=== PATIENT | female | born 1940 | race Caucasian/White ===

== ENCOUNTER 2018-04-24 08:42 | Outpatient (REF) | payer MEDICARE, SELFPAY ==
[2018-04-24 21:26] LABS: ALT 25 U/L (12-78); AST 17 U/L (15-37); Albumin 3.6 g/dL (3.4-5.0); Alkaline Phosphatase 58 U/L (46-116); Anion Gap 9.2 mmol/L (3-11); BUN 14 mg/dL (7-18); Bilirubin, Total 0.5 mg/dL (0.2-1.0); CO2 26.8 mmol/L (21.0-32.0); CREATININE 0.88 mg/dL (0.55-1.02); Calcium 8.9 mg/dL (8.5-10.1); Chloride 107 mmol/L (98-107); Cholesterol 188 mg/dL (50-200); Glucose 110 mg/dL (70-100); HDL Cholesterol 56 mg/dL (40-60); LDL CHOLESTEROL 114 mg/dL (<100); Potassium 4.7 mmol/L (3.5-5.1); Sodium 143 mmol/L (136-145); Total Protein 6.3 g/dL (6.4-8.2); Triglyceride 99 mg/dL (30-150)
== END 2018-04-24 09:02 ==
LOC: NCHCN 08:42
PROVIDERS: PCP Physician Assistant Medical; Visit Provider Nurse Practitioner Family
DX: E78.5 Hyperlipidemia, unspecified (principal); E11.9 Type 2 diabetes mellitus without complications
CPT/HCPCS: 80053; 80061; 83721

== ENCOUNTER 2019-01-11 17:45 | Emergency (ER) | payer MEDICARE, SELFPAY ==
[2019-01-11 18:02] VITALS: BP 153/78; PULSE 91; RESP 16; TEMP 36.6; O2SAT 96
--- NOTE | 2019-01-11 19:45 | DI.COMBO_ITS ---
SYMPTOM/DIAGNOSIS: FELL, PAIN RIGHT WRIST: There is a fracture extending transversely through the distal radial metaphysis. There is some impaction as well as posterior angulation. The fracture extends to the articular surface. There is a nondisplaced fracture of the ulnar styloid. Degenerative changes are seen in the carpal region. IMPRESSION: Distal radial and ulnar styloid fractures. RIGHT HAND: Fracture is seen of the distal radius and ulnar styloid are again noted. Degenerative changes are noted at the carpal joint and the first carpal metacarpal joint as well as at the distal interphalangeal joints. No additional fractures are seen. IMPRESSION: Distal radial and ulnar styloid fractures. No additional fractures are seen in the hand. LEFT WRIST: There is a comminuted intra-articular fracture of the distal radius. There is severe impaction as well as significant displacement of the fracture fragments. There is also a displaced ulnar styloid fracture. The metacarpal as well as carpal bones appear intact. Degenerative changes are seen at the first carpal metacarpal joint. IMPRESSION: Displaced, impacted fracture of the distal radius and ulnar styloid fracture. LEFT HAND: Comminuted intra-articular fracture of the distal radius and ulnar styloid fracture are again noted. No additional fractures are seen in the hand. There is severe degenerative changes of the interphalangeal joints of the fingers as well as at the first carpal metacarpal joint. IMPRESSION: Distal radial and ulnar styloid fractures. No additional fractures are seen in the hand. LEFT FOREARM: There is a comminuted intra-articular fracture of the distal radius with impaction. An ulnar styloid fracture is also present. No fractures are seen more proximally in the radius or ulna. RIGHT FOREARM: There are fractures of the distal radius and ulnar styloid. No additional fractures are seen more proximally. The elbow is unremarkable as visualized. IMPRESSION: Distal radial and ulnar styloid fractures. NONCONTRAST HEAD CT: No intracranial hemorrhage, mass or acute infarct is seen. There is mild atrophy and mild white matter changes of small vessel disease. The orbits and mastoid air cells are unremarkable. IMPRESSION: No acute abnormality. CERVICAL SPINE CT: No fracture or subluxation is seen. Degenerative changes are seen throughout. There is no prevertebral soft tissue swelling. IMPRESSION: No acute abnormality. FACIAL CT: The orbits appear intact. There is minimal mucosal thickening of the right maxillary sinus. The remaining sinuses appear clear. No facial fractures are seen. The temporomandibular joints appear intact. IMPRESSION: Negative facial CT.
--- NOTE | 2019-01-11 20:10 | DI.VRAD_ITS ---
EXAM: XR Right Wrist EXAM DATE/TIME: 01/11/2019 6:57 PM CLINICAL HISTORY: 78 years old, female; Injury or trauma; Initial encounter; Blunt trauma (contusions or hematomas; Wrist; Right; Injury date: 01/11/19; Injury details: Fall on outstretched hands TECHNIQUE: Imaging protocol: XR Right wrist. Views: 3 or more views. COMPARISON: No relevant prior studies available. FINDINGS: Bones/joints: Distal radial metaphyseal fracture with a predominantly transverse fracture plane, demonstrating [id number] impaction dorsal medially. There is evidence of nondisplaced fracture in the radial styloid as well with nondisplaced articular extension at the radio scaphoid joint. Nondisplaced ulnar styloid fracture also noted. No carpal bone fractures are identified. Distal radioulnar alignment is normal. No blastic or lytic lesions. No periostitis or osteolysis. There is moderate degenerative joint space narrowing and marginal spurring at the first CMC joint and STT joint. Osteopenia. Soft tissues: No gross erosive changes. Moderate soft tissue swelling around the wrist. Other findings: Carpal relationships are normal. IMPRESSION: 1. Transverse distal radial metaphyseal fracture with mild dorsal medial impaction and mild apex anterior angulation of about 10-15 degrees. 2. There is an additional component of nondisplaced fracture in the radial styloid with nondisplaced extension to the articular surface at the lateral margin of the radio scaphoid joint. 3. Nondisplaced ulnar styloid avulsion. 4. Osteopenia. 5. There is moderate degenerative joint space narrowing and marginal spurring at the first CMC joint and STT joint. Dictated and Authenticated by: Franco Flores MD. Ordering:MYLES Ceron MD
--- NOTE | 2019-01-11 20:11 | DI.VRAD_ITS ---
EXAM: XR Right Hand EXAM DATE/TIME: 01/11/2019 6:57 PM CLINICAL HISTORY: 78 years old, female; Injury or trauma; Initial encounter; Blunt trauma (contusions or hematomas; Right; Injury date: 01/11/19; Injury details: Fall on outstretched hands TECHNIQUE: Imaging protocol: XR Right hand. Views: 3 or more views. COMPARISON: No relevant prior studies available. FINDINGS: Bones/joints: No fractures are identified in the right hand. Moderate erosive osteoarthritis identified in the DIP joints of the right second and third fingers and to a lesser degree the fifth finger DIP joint. Moderate degenerative arthropathy in the STT joint and first CMC joint again noted. Mildly impacted transverse distal right radial metaphyseal fracture again noted. Nondisplaced radial styloid fracture component again noted. Nondisplaced ulnar styloid fracture again noted. Distal radioulnar alignment is normal. No blastic or lytic lesions. No periostitis or osteolysis. Soft tissues: No gross erosive changes. Moderate soft tissue swelling around the wrist. Other findings: Carpal relationships are normal. IMPRESSION: 1. No fractures are identified in the right hand. 2. Wrist fractures involving the distal right radius and ulna again noted, please see wrist x-ray report for further details. 3. 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 Moderate degenerative changes in the first CMC joint and STT joint. Dictated and Authenticated by: Franco Flores MD. Ordering:MYLES Ceron MD
--- NOTE | 2019-01-11 20:22 | DI.VRAD_ITS ---
EXAM: CT Head Without Contrast EXAM DATE/TIME: 01/11/2019 6:57 PM CLINICAL HISTORY: 78 years old, female; Injury or trauma; Initial encounter; Blunt trauma (contusions or hematomas); Consciousness not specified; Injury date: 01/11/19; Injury details: Fall head first TECHNIQUE: Imaging protocol: Computed tomography images of the head without contrast. Coronal and sagittal reformatted images were created and reviewed. Radiation optimization: All CT scans at this facility use at least one of these dose optimization techniques: automated exposure control; mA and/or kV adjustment per patient size (includes targeted exams where dose is matched to clinical indication); or iterative reconstruction. COMPARISON: No relevant prior studies available. FINDINGS: Brain: Moderate generalized atrophy with mild periventricular white matter ischemic changes consistent with the patient's advanced age. No extra-axial fluid collections. No evidence of acute intracranial hemorrhage. Gomes-white differentiation is well maintained. No evidence of acute or subacute intracranial ischemia/infarct. No intracranial mass lesions. Midline shift: No midline shift or herniation. Ventricles: Ventricles normal. Bones/joints: The calvarium and visualized facial bones are intact. Sinuses: Visualized paranasal sinuses are clear. Mastoid air cells: Visualized mastoid air cells are clear. Orbits: Orbital contents demonstrate no evidence of acute abnormality. Soft tissues: The scalp and visualized soft tissues are unremarkable. Vasculature: No asymmetric vascular hyperdensities are identified. Moderate atherosclerotic calcific plaque is identified in the visualized distal ICA segments . Other findings: The IACs are grossly normal. The sella is grossly normal. IMPRESSION: No acute intracranial process. EXAM: CT Maxillofacial Without Contrast EXAM DATE/TIME: 01/11/2019 6:57 PM CLINICAL HISTORY: 78 years old, female; Injury or trauma; Initial encounter; Blunt trauma (contusions or hematomas); Consciousness not specified; Injury date: 01/11/19; Injury details: Fall head first TECHNIQUE: Imaging protocol: Computed tomography images of the face without contrast. Coronal and sagittal reformatted images were created and reviewed. Radiation optimization: All CT scans at this facility use at least one of these dose optimization techniques: automated exposure control; mA and/or kV adjustment per patient size (includes targeted exams where dose is matched to clinical indication); or iterative reconstruction. COMPARISON: No relevant prior studies available. FINDINGS: Orbits: Orbital contents are normal. Sinuses: Mucosal thickening in the right maxillary sinus suggesting mild chronic sinus inflammatory disease. No fluid levels. The other paranasal sinuses are clear. Bones/joints: No facial fractures are identified. TMJs are well aligned. Brain: Visualized intracranial contents are unremarkable. The infratemporal fossae and solar manager spaces are unremarkable. Nasopharynx: The nasopharynx is unremarkable. Oropharynx: The parapharyngeal spaces are unremarkable. The oropharynx is unremarkable. Lymph nodes: No adenopathy. Vasculature: Mild atherosclerotic calcification in the carotid bulbs. Submandibular/Parotid glands: The parotid and submandibular glands are unremarkable. Soft tissues: No significant facial soft tissue swelling is appreciated. No hematoma or foreign body. Other findings: The hypopharynx is unremarkable. Visualized larynx is unremarkable. Craniocervical alignment is normal. IMPRESSION: No facial fractures are identified. EXAM: CT Cervical Spine Without Contrast EXAM DATE/TIME: 01/11/2019 6:57 PM CLINICAL HISTORY: 78 years old, female; Injury or trauma; Initial encounter; Blunt trauma (contusions or hematomas); Consciousness not specified; Injury date: 01/11/19; Injury details: Fall head first TECHNIQUE: Imaging protocol: Computed tomography images of the cervical spine without contrast. Coronal and sagittal reformatted images were created and reviewed. Radiation optimization: All CT scans at this facility use at least one of these dose optimization techniques: automated exposure control; mA and/or kV adjustment per patient size (includes targeted exams where dose is matched to clinical indication); or iterative reconstruction. COMPARISON: No relevant prior studies available. FINDINGS: Vertebrae: Diffuse osteopenia. Craniocervical alignment is normal. The odontoid is intact. Slight 1 mm degenerative anterolisthesis C4-C5 and C5-C6. No compressive soft disc protrusion or extrusion is evident by CT. A shallow posterior mixed spondylotic protrusion at C5-C6 measures 2 mm AP, and there is a 2 mm posterior spondylotic ridge at C6-C7. Discs/Spinal canal/Neural foramina: Mild degenerative sclerosis and spurring at the atlantodens interval. No jumped or perched facets. Moderate degenerative joint space narrowing with mild endplate sclerosis and marginal spurring and C5-C6, C6-C7, and C7-T1. No evidence of significant central canal stenosis. No evidence of significant neuroforaminal stenosis. Other bones/joints: No fractures. No blastic or lytic lesions. Soft tissues: See Vasculature Finding. Thyroid: 1.5 cm low-density nodule in the left thyroid lobe. Followup thyroid ultrasound characterization is recommended. Lungs: Visualized pulmonary apices are clear. Vasculature: Mild atherosclerotic calcification in the carotid bulbs. Paraspinous soft tissues are otherwise unremarkable. IMPRESSION: 1. No evidence of fracture or acute traumatic subluxation. 2. Osteopenia and cervical degenerative changes as described. 3. 1.5 cm low-density nodule in the left thyroid lobe. Followup thyroid ultrasound characterization is recommended. Dictated and Authenticated by: Franco Flores MD. Ordering:MYLES Ceron MD
--- NOTE | 2019-01-11 20:54 | DI.VRAD_ITS ---
EXAM: XR Left Wrist EXAM DATE/TIME: 01/11/2019 6:57 PM CLINICAL HISTORY: 78 years old, female; Injury or trauma; Fall; Initial encounter; Blunt trauma (contusions or hematomas; Wrist; Left; Injury date: 01/11/19; Additional info: Fall on outstretched hands TECHNIQUE: Imaging protocol: XR Left wrist. Views: 3 or more views. COMPARISON: No relevant prior studies available. FINDINGS: Bones/joints: Comminuted fracture of the distal left radial metaphysis without 8 mm impaction. There is comminuted extension to the articular surface at the radiocapitellar and radiolunate joints. Mildly displaced ulnar styloid avulsion fracture. Moderate degenerative arthropathy of the first CMC joint and STT joint. No carpal bone fractures are identified. Soft tissues: Moderate soft tissue swelling around the left wrist. IMPRESSION: 1. Comminuted impacted fracture of the distal left radial metaphysis with comminuted intra-articular extension. 2. Mildly displaced ulnar styloid fracture. 3. Moderate degenerative arthropathy of the first CMC joint and STT joint. Dictated and Authenticated by: Franco Flores MD. Ordering:MYLES Ceron MD
--- NOTE | 2019-01-11 20:55 | DI.VRAD_ITS ---
EXAM: XR Left Forearm EXAM DATE/TIME: 01/11/2019 6:57 PM CLINICAL HISTORY: 78 years old, female; Injury or trauma; Fall; Initial encounter; Blunt trauma (contusions or hematomas; Arm, lower; Left; Injury date: 01/11/19; Additional info: Fall on outstretched hands TECHNIQUE: Imaging protocol: XR Left forearm. Views: 2 views. COMPARISON: No relevant prior studies available. FINDINGS: Bones/joints: The comminuted impacted intra-articular fracture of the distal left radial metaphysis is again noted. A mildly displaced ulnar styloid fracture is again noted. No fractures are identified in the mid and proximal radius and ulna. Normal alignment is maintained at the elbow without gross elbow joint effusion. Proximal radial ulnar alignment is normal. Soft tissues: Moderate soft tissue swelling in the mid and distal forearm. IMPRESSION: 1. No fractures are identified in the mid and proximal radius and ulna. 2. Radioulnar alignment is grossly well-maintained. 3. Moderate soft tissue swelling. Dictated and Authenticated by: Franco Flores MD. Ordering:MYLES Ceron MD
--- NOTE | 2019-01-11 20:56 | DI.VRAD_ITS ---
EXAM: XR Right Forearm EXAM DATE/TIME: 01/11/2019 6:57 PM CLINICAL HISTORY: 78 years old, female; Injury or trauma; Fall; Initial encounter; Blunt trauma (contusions or hematomas; Arm, lower; Right; Injury date: 01/11/19; Additional info: Fall on outstretched hands TECHNIQUE: Imaging protocol: XR Right forearm. Views: 2 views. COMPARISON: No relevant prior studies available. FINDINGS: Bones/joints: The previously identified mildly impacted fracture of the distal right radial metaphysis with nondisplaced radial styloid fracture and nondisplaced ulnar styloid fracture are again noted. No fractures are identified in the mid and proximal right radius and ulna. Proximal radial ulnar alignment at distal radioulnar alignment is grossly well maintained. No gross elbow joint effusion. Soft tissues: Moderate soft tissue swelling in the mid and distal right forearm. IMPRESSION: 1. No fractures are identified in the mid and proximal right forearm. 2. Distal radial and ulnar fractures are again noted, please see wrist x-ray report for further details. 3. Soft tissue swelling. Dictated and Authenticated by: Franco Flores MD. Ordering:MYLES Ceron MD
--- NOTE | 2019-01-11 20:58 | DI.VRAD_ITS ---
EXAM: XR Left Hand EXAM DATE/TIME: 01/11/2019 6:57 PM CLINICAL HISTORY: 78 years old, female; Injury or trauma; Fall; Initial encounter; Blunt trauma (contusions or hematomas; Hand; Left; Injury date: 01/11/19; Additional info: Fall on outstretched hands TECHNIQUE: Imaging protocol: XR Left hand. Views: 3 or more views. COMPARISON: No relevant prior studies available. FINDINGS: Bones/joints: Comminuted impacted fracture of the distal left radial metaphysis with displaced intra-articular extension is again noted. Mildly displaced ulnar styloid fracture again noted. Carpal relationships are normal. No carpal bone fractures are identified. The metacarpals are intact. The phalanges are intact. Moderate erosive osteoarthritis in the DIP joints of the second through fifth fingers. Moderate degenerative arthropathy of the first CMC joint and STT joint. Soft tissues: Soft tissue swelling around the left wrist. IMPRESSION: 1. No fracture or dislocation in the left hand itself. 2. Fractures of the distal left radius and ulna again noted, please see wrist x-ray report. 3. Osteopenia and evidence of erosive osteoarthritis in the DIP joints. Moderate degenerative arthropathy in the first CMC joint and STT joint. Dictated and Authenticated by: Franco Flores MD. Ordering:MYLES Ceron MD
--- NOTE | 2019-01-11 21:03 | ED.GENADUL_ITS ---
Discharge Plan Disposition Patient Disposition: HOME Condition: Stable Discharge Details Chief Complaint: Trauma Clinical Impression: Closed fracture distal radius and ulna, Contusion of face Primary Care Provider: Julisa Gavin ED Provider: Osmany Márquez Home Meds and New Rx's Prescriptions: Continued epinephrine 0.3 MG/SYR auto-injector 0.3 mg IJ PRN PRNRF: 0 acetaminophen [Tylenol Extra Strength] 500 MG tablet 1,000 mg PO HS PRN PRNRF: 0 alendronate 35 MG tablet 35 mg PO Q7D RF: 0 simvastatin 20 MG tablet 20 mg PO DAILY RF: 0 metformin 1,000 MG tablet 1,000 mg PO DAILY RF: 0 prednisone 50 MG tablet 50 mg PO DAILY 5 Days RF: 0 Discharge Instructions Instructions: Wrist Fracture in Adults (ED) Additional Instructions: You may continue to use [id number] pain medication as needed. Return immediately to the emergency department for any severe worsening of pain, numbness or tingling to your fingers or hands, or excessive swelling. Otherwise follow-up with orthopedist tomorrow for arrangement of follow-up appointment Referrals: Josiah Hector MD [ [facility] STAFF PHYSICIAN] - (Call the office in the morning for arrangement of follow-up appointment) Discharge Data Discharge Date/Time-TO BE ENTERED AT DEPARTURE: 01/11/19 21:55 Medical Decision Making Patient presenting to the emergency department with her daughter for chief complaint of fall and wrist injury. Patient states 2 days ago she was attempting to walk her cat and tripped on the leash and fell. When she caught herself she injured her wrists along with hitting her head slightly. Patient denies any loss of consciousness, headache, nausea vomiting, chest pain syncope or difficulty breathing. Physical exam shows significant ecchymosis to bilateral wrist hands and forearms along with ecchymosis surrounding the left orbit. Patient has no orbital tenderness, significant decreased range of motion to bilateral wrist and hands, radial pulses and cap refill is intact and appropriate, sensation is intact, patient states moderate pain to left wrist with movement and palpation to the distal radius and ulna but states only mild pain to the right wrist. Given significant trauma plan to do radiological imaging of bilateral hands, wrists, and forearms. Given patient's age and orbital ecchymosis plan to rule out acute intracranial abnormality, facial bone fracture, or cervical fracture. Patient denies any need for pain medication Review of radiological imaging shows bilateral distal radius fractures and ulnar styloid fractures. No ulnar dislocation is noted. Please see below note of full radiologist interpretation. Did consult with Dr. Hector due to bilateral wrist fractures with one having intra-articular involvement. He recommended splinting. Patient placed in sugar tong splint bilateral with Ortho-Glass and Mohsen bandage. Daughter is able to help patient at home and patient placed upon follow-up list. Return precautions discussed. After discussion of diagnosis and plan of care patient has no further needs, questions, or concerns and states clear understanding to return to the emergency department for any worsening symptoms. IMPRESSION: 1. No fracture or dislocation in the left hand itself. 2. Fractures of the distal left radius and ulna again noted, please see wrist x-ray report. 3. Osteopenia and evidence of erosive osteoarthritis in the DIP joints. Moderate degenerative arthropathy in the first CMC joint and STT joint. MPRESSION: 1. No fractures are identified in the mid and proximal right forearm. 2. Distal radial and ulnar fractures are again noted, please see wrist x-ray report for further details. 3. Soft tissue swelling. IMPRESSION: 1. No fractures are identified in the mid and proximal radius and ulna. 2. Radioulnar alignment is grossly well-maintained. 3. Moderate soft tissue swelling. IMPRESSION: 1. Comminuted impacted fracture of the distal left radial metaphysis with comminuted intra-articular extension. 2. Mildly displaced ulnar styloid fracture. 3. Moderate degenerative arthropathy of the first CMC joint and STT joint. IMPRESSION: No acute intracranial process. IMPRESSION: No facial fractures are identified. IMPRESSION: 1. No evidence of fracture or acute traumatic subluxation. 2. Osteopenia and cervical degenerative changes as described. 3. 1.5 cm low-density nodule in the left thyroid lobe. Followup thyroid ultrasound characterization is recommended. MPRESSION: 1. No fractures are identified in the right hand. 2. Wrist fractures involving the distal right radius and ulna again noted, please see wrist x-ray report for further details. 3. 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 Moderate degenerative changes in the first CMC joint and STT joint. MPRESSION: 1. Transverse distal radial metaphyseal fracture with mild dorsal medial impaction and mild apex anterior angulation of about 10-15 degrees. 2. There is an additional component of nondisplaced fracture in the radial styloid with nondisplaced extension to the articular surface at the lateral margin of the radio scaphoid joint. 3. Nondisplaced ulnar styloid avulsion. 4. Osteopenia. 5. There is moderate degenerative joint space narrowing and marginal spurring at the first CMC joint and STT joint. HPI General Mode of arrival: ambulatory . Date/Time Provider Initiated Documentation: 01/11/19 18:19 . Limitations to Documentation: no limitations . Information obtained by: patient and RN notes reviewed . History of Present Illness 78 year old F presents to the emergency department with the chief complaint of Fall, wrist injury, described as moderate, with intensity rated at 3. Quality is described as aching, and is localized to the upper extremity (Bilateral). Patient started experiencing this day(s) (2) and it has been constant. Patient notes no other symptoms.. Patient did receive the following treatments prior to arrival, none Related Data Home Medications Medication Instructions Recorded Confirmed acetaminophen [Tylenol Extra 1,000 mg PO HS PRN PRN 01/20/16 01/13/19 Strength] alendronate 35 mg PO Q7D 01/20/16 01/13/19 epinephrine 0.3 mg IJ PRN PRN 01/20/16 01/13/19 metformin 1,000 mg PO DAILY 01/20/16 01/13/19 prednisone 50 mg PO DAILY 5 Days tab 01/20/16 01/13/19 simvastatin 20 mg PO DAILY 01/20/16 01/13/19 Previous Rx's Medication Instructions Recorded prednisone 50 mg PO DAILY 5 Days tab 01/20/16 Allergies Allergy/AdvReac Type Severity Reaction Status Date / Time venom-honey bee Allergy Severe Anaphylaxsi Unverified 01/13/19 09:11 [bee venom (honey bee)] s General Stated Complaint: Trauma RONAK: 3 Review of Systems Constitutional Denies frequent falls Cardiovascular Denies chest pain, Denies rapid heart rate, Denies palpitations and Denies dyspnea Respiratory Denies dyspnea Gastrointestinal Denies vomiting Musculoskeletal Reports as per HPI, Reports joint swelling, Reports limited range of motion, Denies numbness and Denies tingling Neurologic Denies frequent falls, Denies numbness and Denies tingling Endocrine Denies palpitations PFSH Social History (Reviewed 01/11/19 @ 21:05 by TEODORA Watson Smoking/Tobacco Use Status: Former Tobacco Use Alcohol Intake: never Drug use: Never Substance use type: does not use Do you feel safe at home: Yes Exam HENNE Head: normal to inspection, no palpable skull fracture, no Du's sign, no hematomas, no palpable skull fracture, no raccoon eyes, no scalp tenderness, no temporal artery tenderness and periorbital ecchymosis (Left eye) Ears: hearing grossly normal bilaterally, external ears normal and TM's normal bilaterally General nose exam: external nose normal Neck Neck: normal visual inspection, full ROM, trachea midline and supple Resp Effort & Inspection: normal respiratory effort and able to speak in complete sentences Auscultation: clear to auscultation bilaterally Cardio Rate: regular rate Rhythm: regular rhythm Heart Sounds: S1 normal and S2 normal Back/Spine/Pelvis Cervical Spine: cervical ROM normal, No cervical spinal tenderness and No step off deformity Extrem Right upper extremity: elbow/forearm Details: normal to inspection and normal ROM; no tenderness, no abrasions, no lacerations and no ecchymosis, wrist D etails: tenderness Location: of the distal radius and of the distal ulna, swelling Location: of the dorsal wrist, abnormal ROM Details: pain with active ROM during (pronation) and ecchymosis; no abrasions and hand Details: normal capillary refill, neuromotor exam normal, neurosensory exam normal, tendon exam normal, normal ROM of fingers and ecchymosis Location: of the dorsal hand; no tenderness Left upper extremity: elbow/forearm Details: normal to inspection and normal ROM; no swelling, wrist Details: swelling (difuse), abnormal ROM Details: pain with active ROM, ecchymosis, deformity Details: dinner fork, normal vascular exam and radial pulse present; no abrasions, no lacerations and no crepitus and hand Details: normal capillary refill, neuromotor exam normal, neurosensory exam normal, tendon exam normal, normal ROM of fingers and ecchymosis; no tenderness and no crepitus Course Vital Signs Temperature 36.6 C 01/11/19 18:02 Pulse 91 H 01/11/19 18:02 Respiratory Rate 16 01/11/19 18: Blood Pressure 153/78 H 01/11/19 18:02 Pulse Oximetry 96 01/11/19 18:02 Temperature 36.6 C 01/11/19 18:02 Temperature Source Skin 01/11/19 18:02 Pulse 91 H 01/11/19 18:02 Respiratory Rate 16 01/11/19 18:02 Respiratory Effort Non-Labored 01/11/19 19:48 Blood Pressure 153/78 H 01/11/19 18:02 Blood Pressure Position Sitting 01/11/19 18:02 Pulse Oximetry 96 01/11/19 18:02 Oxygen Delivery Method Room Air 01/11/19 18:02 Oxygen Flow Rate 0 01/11/19 18:02
== END 2019-01-11 21:55 | disposition home or self-care (01) ==
PROVIDERS: Emergency Provider Nurse Practitioner Family; PCP Physician Assistant Medical
DX: S52.511A Displaced fracture of right radial styloid process, initial encounter for closed fracture (principal); S52.611A Displaced fracture of right ulna styloid process, initial encounter for closed fracture; S52.572A Other intraarticular fracture of lower end of left radius, initial encounter for closed fracture; S52.512A Displaced fracture of left radial styloid process, initial encounter for closed fracture; S00.83XA Contusion of other part of head, initial encounter; W01.0XXA Fall on same level from slipping, tripping and stumbling without subsequent striking against object, initial encounter
CPT/HCPCS: 99284; 70450; 70486; 72125; 73090; 73110; 73130

== ENCOUNTER 2019-01-13 09:43 | Outpatient (CLI) | payer MEDICARE, SELFPAY ==
--- NOTE | 2019-01-13 09:21 | DI.RAD_ITS ---
SYMPTOM/DIAGNOSIS: F/U FX LEFT WRIST: Comparison is made with 01/11/19. Again noted is the comminuted intra-articular fracture with impaction of the distal radius and ulnar styloid fracture. There is mild widening of the scapholunate distance which could indicate ligament disruption. Degenerative changes are again noted at the first carpal metacarpal joint.
== END 2019-01-13 10:03 ==
PROVIDERS: PCP Physician Assistant Medical; Referring Provider Physician Assistant Medical; Visit Provider Orthopaedic Surgery
DX: S52.601A Unspecified fracture of lower end of right ulna, initial encounter for closed fracture; S52.502A Unspecified fracture of the lower end of left radius, initial encounter for closed fracture; M18.12 Unilateral primary osteoarthritis of first carpometacarpal joint, left hand; S52.501A Unspecified fracture of the lower end of right radius, initial encounter for closed fracture; S52.602A Unspecified fracture of lower end of left ulna, initial encounter for closed fracture; W19.XXXA Unspecified fall, initial encounter
CPT/HCPCS: 29125; 99201; 99213; 73100; L3908

== ENCOUNTER 2019-01-27 10:15 | Outpatient (CLI) | payer MEDICARE, SELFPAY ==
--- NOTE | 2019-01-27 09:30 | DI.RAD_ITS ---
SYMPTOM/DIAGNOSIS: F/U LEFT WRIST: 01/27 Two views were obtained and show previously described comminuted displaced fracture of the distal radius with no gross interval change in alignment of fracture fragments in comparison with examination of 01/13/19 Ulnar styloid fracture again noted as well. RIGHT WRIST : 01/27 Two views were obtained and show the previously n oted fracture of the distal radius and ulnar styloid. No gross interval change in alignment in comparison with previous films of 01/11/19
== END 2019-01-27 10:35 ==
PROVIDERS: PCP Physician Assistant Medical; Referring Provider Physician Assistant Medical; Visit Provider Orthopaedic Surgery
DX: S52.511A Displaced fracture of right radial styloid process, initial encounter for closed fracture (principal); S52.512A Displaced fracture of left radial styloid process, initial encounter for closed fracture; X58.XXXA Exposure to other specified factors, initial encounter
CPT/HCPCS: 99213; 73100

== ENCOUNTER 2019-02-24 10:53 | Outpatient (CLI) | payer MEDICARE, SELFPAY ==
--- NOTE | 2019-02-24 10:26 | DI.RAD_ITS ---
EXAM: XR WRIST RT LIMITED INDICATION: f/u. COMPARISON: XR wrist LT limited from 01/13/2019 XR wrist RT limited from 01/27/2019 XR wrist LT limited from 01/27/2019 XR WRIST LT LIMITED from 02/24/2019 TECHNIQUE: 2D digital imaging was performed. FINDINGS: When compared with the previous examination, there is no apparent change in the status of the fractur es of the distal radius and ulna. IMPRESSION:
--- NOTE | 2019-02-24 10:26 | DI.RAD_ITS ---
EXAM: XR WRIST LT LIMITED INDICATION: f/u. COMPARISON: XR wrist RT limited from 01/27/2019 XR wrist LT limited from 01/27/2019 TECHNIQUE: 2D digital imaging was performed. FINDINGS: When compared with the previous examination of the left wrist of 01/27/2019, there has been no interva l change in apposition or alignment of the fracture fragments involving the distal radius and ulnar s tyloid. IMPRESSION:
== END 2019-02-24 11:13 ==
PROVIDERS: PCP Nurse Practitioner Family; Visit Provider Orthopaedic Surgery
DX: S52.501D Unspecified fracture of the lower end of right radius, subsequent encounter for closed fracture with routine healing (principal); S52.502D Unspecified fracture of the lower end of left radius, subsequent encounter for closed fracture with routine healing; S52.601D Unspecified fracture of lower end of right ulna, subsequent encounter for closed fracture with routine healing; S52.602D Unspecified fracture of lower end of left ulna, subsequent encounter for closed fracture with routine healing; X58.XXXD Exposure to other specified factors, subsequent encounter
CPT/HCPCS: 99213; 73100

== ENCOUNTER 2019-04-13 09:50 | Outpatient (REF) | payer MEDICARE, SELFPAY ==
[2019-04-13 20:55] LABS: ALT 29 U/L (14-59); AST 16 U/L (15-37); Anion Gap 9.9 mmol/L (3-11); BUN 14 mg/dL (7-18); CO2 27.1 mmol/L (21.0-32.0); CREATININE 0.98 mg/dL (0.55-1.02); Calcium 9.1 mg/dL (8.5-10.1); Calculated LDL 102 mg/dL; Chloride 105 mmol/L (98-107); Cholesterol 178 mg/dL (50-200); Estimated GFR 54.75 (mL/min/1.73m2); Glucose 113 mg/dL (70-100); HDL Cholesterol 54 mg/dL (40-60); Potassium 4.3 mmol/L (3.5-5.1); Sodium 142 mmol/L (136-145); Triglyceride 110 mg/dL (30-150)
[2019-04-13 21:16] LABS: Creatine Kinase 91 U/L (26-192)
== END 2019-04-13 10:10 ==
LOC: NCHCN 09:50
PROVIDERS: PCP Nurse Practitioner Family; Visit Provider Nurse Practitioner Family
DX: E11.9 Type 2 diabetes mellitus without complications (principal); E78.5 Hyperlipidemia, unspecified
CPT/HCPCS: 80048; 80061; 82550; 84450; 84460

== ENCOUNTER 2020-01-26 09:53 | Outpatient (REF) | payer MEDICARE, SELFPAY ==
[2020-01-26 20:27] LABS: ALT 27 U/L (14-59); AST 16 U/L (15-37); Albumin 3.6 g/dL (3.4-5.0); Alkaline Phosphatase 52 U/L (46-116); Anion Gap 11.7 mmol/L (3-11); BUN 17 mg/dL (7-18); Bilirubin, Total 0.5 mg/dL (0.2-1.0); CO2 25.3 mmol/L (21.0-32.0); CREATININE 1.04 mg/dL (0.55-1.02); Calcium 9.2 mg/dL (8.5-10.1); Calculated LDL 102 mg/dL (<100); Chloride 106 mmol/L (98-107); Cholesterol 172 mg/dL (<200); Estimated GFR 51.12 (mL/min/1.73m2); Glucose 101 mg/dL (74-106); HDL Cholesterol 47 mg/dL (40-60); Potassium 4.2 mmol/L (3.5-5.1); Sodium 143 mmol/L (136-145); Total Protein 6.3 g/dL (6.4-8.2); Triglyceride 115 mg/dL (<150)
[2020-01-26 20:44] LABS: Creatine Kinase 96 U/L (26-192)
== END 2020-01-26 10:13 ==
LOC: NCHCN 09:53
PROVIDERS: PCP Nurse Practitioner Family; Visit Provider Nurse Practitioner Family
DX: E11.9 Type 2 diabetes mellitus without complications (principal); E78.5 Hyperlipidemia, unspecified; M81.0 Age-related osteoporosis without current pathological fracture
CPT/HCPCS: 80053; 80061; 82550

== ENCOUNTER 2020-08-22 19:29 | Outpatient (REF) | payer MEDICARE, SELFPAY ==
[2020-08-22 19:07] LABS: Anion Gap 7.2 mmol/L (3-11); BUN 15 mg/dL (7-18); CO2 29.8 mmol/L (21.0-32.0); CREATININE 1.1 mg/dL (0.55-1.02); Calcium 9.2 mg/dL (8.5-10.1); Chloride 105 mmol/L (98-107); Estimated GFR 47.79 (mL/min/1.73m2); Glucose 98 mg/dL (74-106); Potassium 4.3 mmol/L (3.5-5.1); Sodium 142 mmol/L (136-145)
== END 2020-08-22 19:30 | disposition home or self-care (01) ==
LOC: NCHCN 19:29
PROVIDERS: PCP Nurse Practitioner Family; Visit Provider Nurse Practitioner Family
DX: R94.4 Abnormal results of kidney function studies (principal)
CPT/HCPCS: 80048

== ENCOUNTER 2020-09-01 02:15 | Outpatient (CLI) | payer MEDICARE, SELFPAY ==
--- NOTE | 2020-09-01 15:23 | DI.MAMMO_ITS ---
EXAM: MG MAMMO SCREENING CLINICAL HISTORY: SCREENING Z12.39. TECHNIQUE: Bilateral full field digital CC and MLO mammographic images were obtained with 3D tomosyn thesis and utilizing computer aided detection (CAD). COMPARISON: Prior mammograms dating back to 2011, the most recent being November 2017.. FINDINGS: There are no new significant radiograph findings in the right breast. Benign microcalcification grou p centrally in the right breast is again noted. However, in the posterior aspect of the left breast there is a new ominous nodule located 8 centimetr es in from the nipple which is highly suspicious for neoplasm. Spot compression view and ultrasound recommended. No new skin thickening-traction IMPRESSION: There is a spiculated nodule posteriorly in the left breast which measures approximately 2 x 1.8 cent imetres, highly suspicious for malignancy. Ultrasound recommended. Breast surgery consultation herrera mmended. Report called by myself to the covering physician for at [facility] 09/01/20 at 4:15 p.m. BI-RADS Category 0 - Assessment Incomplete: Need additional imaging evaluation Breast Density - Category B - Scattered areas of fibroglandular density Breast density Category C or D implies that the patient has dense breast tissue. Dense breast tissue can make it harder to find cancer on a mammogram. Dense breast tissue is also associated with an incr eased risk of breast cancer. This information about the result of the mammogram report was provided to the patient to raise their awareness. Use this report when you speak with the patient about their risks for breast cancer, which includes their family history. At that time, you may recommend additional screening tests (Ultrasoun d or MRI) as these tests may add significant information. A negative radiographic report should not delay biopsy if a dominant or clinically suspicious mass is present. Up to ten percent of cancers are not identified on mammography. A negative report may reinforce clinical impression. Adenosis and dense breasts may obscure an underlying neoplasm. False positive reports average 6 to 10%. Patient will receive a letter notifying them of these results.
== END 2020-09-01 02:35 ==
PROVIDERS: PCP Nurse Practitioner Family; Visit Provider Nurse Practitioner Family
DX: Z12.31 Encounter for screening mammogram for malignant neoplasm of breast (principal); R92.8 Other abnormal and inconclusive findings on diagnostic imaging of breast
CPT/HCPCS: 77063; 77067

== ENCOUNTER 2020-09-05 02:40 | Outpatient (CLI) | payer MEDICARE, SELFPAY ==
--- NOTE | 2020-09-05 | DI.US_ITS ---
EXAM: US BREAST LT COMPLETE TECHNIQUE: Complete ultrasound of the left breast was performed, including all 4 quadrants as well a s the retroareolar region and left axilla.. COMPARISON: Prior mammograms were reviewed. FINDINGS: At the 4 o'clock position there is a lobulated 1.8 by 0.8 centimeter solid nodule which is suspicious for malignancy and corresponds to the nodule seen on the recent mammogram. No other finding seen in all 4 quadrants nor in the immediate retroareolar region. Left axilla is negative for adenopathy. IMPRESSION: There is a 1.8 x 0.8 centimeters solid nodule at the 4 o'clock position which corresponds to the find ing on the mammogram and is suspicious for malignancy. There are no other findings in all 4 quadrants. No axillary adenopathy Appropriate follow-up is biopsy for final histologic diagnosis.. Findings and recommendations were discussed by myself with the patient today. Also called her provid er Katherine Cifuentes following completion of the study Saturday09/05/2020 BI-RADS Category 5 - Highly Suggestive of Malignancy: Biopsy recommended Breast Density - Category B - Scattered areas of fibroglandular density Breast density Category C or D implies that the patient has dense breast tissue. Dense breast tissue can make it harder to find cancer on a mammogram. Dense breast tissue is also associated with an incr eased risk of breast cancer. This information about the result of the mammogram report was provided to the patient to raise their awareness. Use this report when you speak with the patient about their risks for breast cancer, which includes their family history. At that time, you may recommend additional screening tests (Ultrasoun d or MRI) as these tests may add significant information. A negative radiographic report should not delay biopsy if a dominant or clinically suspicious mass is present. Up to ten percent of cancers are not identified on mammography. A negative report may reinforce clinical impression. Adenosis and dense breasts may obscure an underlying neoplasm. False positive reports average 6 to 10%. Patient will receive a letter notifying them of these results.
--- NOTE | 2020-09-05 | DI.MAMMO_ITS ---
EXAM: MG MAMMO SCREEN CALL BACK UNI CLINICAL HISTORY: F/U MAMMO, NEW LT BREAST NODULE. TECHNIQUE: Spot-compression 3D left breast mammographic images were obtained with 3D tomosynthesis a nd utilizing computer aided detection (CAD). COMPARISON: Prior mammograms were reviewed FINDINGS: Visual spot view reveals the nodule to persist. This is suspicious for malignancy. Left breast ultrasound performed following this mammogram today also reveals a concerning nodule susp icious for malignancy, corresponding to the mammographic finding. Please see that separate report. IMPRESSION: Findings are suspicious for malignancy in the posterior aspect of the left breast. Biopsy is recommended Findings are recommendations were discussed by myself with the patient today and I also called her pr clarisa Cifuentes with this result. BI-RADS Category 5 - Highly Suggestive of Malignancy: Biopsy recommended Breast Density - Category B - Scattered areas of fibroglandular density Breast density Category C or D implies that the patient has dense breast tissue. Dense breast tissue can make it harder to find cancer on a mammogram. Dense breast tissue is also associated with an incr eased risk of breast cancer. This information about the result of the mammogram report was provided to the patient to raise their awareness. Use this report when you speak with the patient about their risks for breast cancer, which includes their family history. At that time, you may recommend additional screening tests (Ultrasoun d or MRI) as these tests may add significant information. A negative radiographic report should not delay biopsy if a dominant or clinically suspicious mass is present. Up to ten percent of cancers are not identified on mammography. A negative report may reinforce clinical impression. Adenosis and dense breasts may obscure an underlying neoplasm. False positive reports average 6 to 10%. Patient will receive a letter notifying them of these results.
== END 2020-09-05 03:00 ==
PROVIDERS: PCP Nurse Practitioner Family; Visit Provider Nurse Practitioner Family
DX: Z12.31 Encounter for screening mammogram for malignant neoplasm of breast (principal); R92.8 Other abnormal and inconclusive findings on diagnostic imaging of breast; N63.23 Unspecified lump in the left breast, lower outer quadrant
CPT/HCPCS: 76642; 77063; 77067

== ENCOUNTER 2020-09-12 02:35 | Outpatient (CLI) | payer MEDICARE, SELFPAY ==
--- NOTE | 2020-09-12 14:00 | DI.US_ITS ---
EXAM: LT BREAST MASS, ULTRASOUND GUIDED CORE BX COMPARISON: US US BREAST LT LIMITED from 09/05/2020 TECHNIQUE: Ultrasound performed using standard protocol. FINDINGS: Sonography was provided for Dr. Rodriguez during the performance of a left breast biopsy. Please refe r to the procedure report for complete details. DATA REPOSITORY:
--- NOTE | 2020-09-12 14:12 | BREAST_PTH ---
PATIENT: Regina Payton LOC: [facility] U#:[id number] AGE/SX: 80/F ROOM: RE09/12/[address]: Brittnee Rodriguez MD : 1940 BED: DIS: 09/12/2020 SPEC #: [id number] RECD: 09/12/20 17:14 STATUS: EDILBERTO REQ #: [id number] RICARDO: 09/12/20 14:[address]: Brittnee Rodriguez DEPT: Surgical Specimen RECD BY: Eneida Snow ENTERED: 09/12/20 17:15 SP TYPE: Breast OTHR DR: Katherine Cifuentes Tissues: 1 - BREAST BX NEEDLE Procedures: GROSS AND MICRO LEVEL 4 Her-2 Dual JASMYN ESTROGEN/PROGESTERONE RECEPTOR IPEX STAIN Comments: [id number]
--- NOTE | 2020-09-16 08:51 | W.PROCNOTE ---
Date of service: 09/12/20 Time of Service: 14:00 Procedure Note Date of procedure: 09/12/20 Procedure: Left Breast Core needle biopsy Surgeon/Proceduralist/Physician: Brittnee Rodriguez Procedure Indications: Mrs. Payton is a pleasant 80-year-old female who underwent a screening mammogram and was noted to have an irregularity. Ultrasound was done which showed a 0.8 x 0.8 cm solid nodule suspicious for malignancy. The patient was seen today in radiology for a core needle biopsy of the left breast lesion. The procedure was discussed in detail. Risks, benefits, complications were reviewed with the patient. Questions were entertained and answered to her satisfaction and she wished to proceed. Procedure Description: Pre-op Dx: Left Breast Mass Post-op Dx: same Procedure: Us guided Left Breast lesion core needle biopsy Surgeon: Soco Rodriguez MD Anesthesia: Local anesthesia with 1% Lidocaine Blood loss: 2 cc Specimen: Core needle biopsy Complications: no immediate complications Procedure: After informed consent was obtained the patient was placed in a supine position. Us was done of the left Breast and the lesion was localized by the US tech at the 4 o'clock position. The skin was cleaned with alcohol and infiltrated with the above local anesthetic. The skin was then prepped. An incision was made with an 11 blade. Using a 14 gauge core needle 2 specimens were removed and placed on telfa and placed in formalin. A small titanium clip was then placed into the lesion under US guidence. The skin was cleaned and dried and a band aid was applied. The patient tolerated the procedure well and there were no immediate complications.
== END 2020-09-12 02:55 ==
PROVIDERS: PCP Nurse Practitioner Family; Visit Provider Surgery
DX: C50.512 Malignant neoplasm of lower-outer quadrant of left female breast (principal); Z17.0 Estrogen receptor positive status [ER+]; R92.8 Other abnormal and inconclusive findings on diagnostic imaging of breast
CPT/HCPCS: 19083; 88305; 76942; 88360; 88368

== ENCOUNTER → 2020-09-27 13:42 | Outpatient (BNVA) | payer MEDICARE, SELFPAY | PROVIDERS: PCP Nurse Practitioner Family; Referring Provider Nurse Practitioner Family; Visit Provider Surgery | DX: C50.512 Malignant neoplasm of lower-outer quadrant of left female breast (principal); Z17.0 Estrogen receptor positive status [ER+] | CPT/HCPCS: 99213; 99215 ==

== ENCOUNTER 2020-10-03 03:31 | Outpatient (CLI) | payer MEDICARE, SELFPAY ==
[2020-10-03 10:00] LABS: Source Nasal/Nares
[2020-10-03 16:10] LABS: COVID-19 PCR Negative (Negative)
== END 2020-10-03 03:32 | disposition home or self-care (01) ==
LOC: LBO 03:31
PROVIDERS: PCP Nurse Practitioner Family; Visit Provider Surgery
DX: Z20.822 Contact with and (suspected) exposure to COVID-19 (principal); Z01.818 Encounter for other preprocedural examination
CPT/HCPCS: 87635

== ENCOUNTER 2020-10-05 18:50 | Observation (INO) | payer MEDICARE, SELFPAY ==
[2020-10-05] VITALS (7 sets, daily range): BP systolic 122–157; BP diastolic 56–85; PULSE 63–88; RESP 16–19; TEMP 35.9–36.9; O2SAT 93–98; BMI 29.5
--- NOTE | 2020-10-05 | DI.MAMMO_ITS ---
EXAM: MG MAMMO SPECIMEN CLINICAL HISTORY: LT BREAST CA, LT LUMPECTOMY. TECHNIQUE: Specimen radiograph COMPARISON: Prior mammograms reviewed FINDINGS: Specimen contains the targeted lesion as well as the wire. This is spiculated lesion. Some the spic ulations reach the surface of the specimen. Findings were discussed by myself with the breast surgeon in the operating room following completion of the study for 02/04/21 Impression:
--- NOTE | 2020-10-05 | DI.US_ITS ---
EXAM: US NEEDLE LOCAL BREAST WO RAD CLINICAL HISTORY: LT BREAST CA, LT LUMPECTOMY,C50.512.Z7.0. Right Breast. Left Breast. TECHNIQUE: Ultrasound guidance was provided during for operative needle localization performed by cleo gill surgeon . Radiologist not present. COMPARISON: US US OR ANESTHESIA from 10/05/2020 FINDINGS: Images reveal satisfactory placement through the nodule of concern. IMPRESSION: Successful Ultrasound-guided preop needle/wire localization. This was performed by the surgeon.
--- NOTE | 2020-10-05 07:45 | DI.NM_ITS ---
EXAM: NM SENTNODE INJ AND SCAN CLINICAL HISTORY: l breast lumpectomy,LT BREAST CA,C50.512,Z17.0. TECHNIQUE: Injected Dose: 1 mCi Tc-99m filtered sulfur colloid Images: None COMPARISON: Prior mammograms reviewed FINDINGS: The total sulfur colloid dose was injected varied site subcutaneously by The breast surgeon. Pooja ges were not obtained. IMPRESSION: 1. Technetium 99 sulfur colloid sentinel node injection left breast. DATA REPOSITORY:
--- NOTE | 2020-10-05 09:37 | W.PM.OP ---
Date of service: 10/05/20 Time of Service: 18:56 Operative Note Operative Note DATE OF PROCEDURE: 10/05/20 PRE-OP DIAGNOSIS: left Breast Cancer POST-OP DIAGNOSIS: same PROCEDURE: Left Breast partial Mastectomy and sentinel left axillary lymphnode biopsy SURGEON: Brittnee Rodriguez PRODUCTION MACHINE TENDER: Fauzia Santiago ANESTHESIA TYPE: Local By Surgeon and Primary Nerve Block Refer to Anesthesia Record PATHOLOGY: other (Breast tissue and sentinel lymph node) COMPLICATIONS: None Patient was transported to: PACU Patient's condition: stable Indications: Regina is a pleasant 80-year-old female who underwent biopsy of a left breast lesion found on routine mammogram. 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 We reviewed her surgical options of partial mastectomy followed by radiation versus mastectomy. We also reviewed sentinel lymph node biopsy. We discussed radiation which would be the recommendation after a partial mastectomy. Chemotherapy treatments will depend on her lymph node status. I reviewed the procedures in detail. I recommend a partial mastectomy with sentinel lymph node biopsy followed by radiation. The patient is in agreement with this. I have also called her daughter Ann who lives in [place] and discussed her mother's case with her. We will coordinate with radiology and schedule her surgery in the next couple of weeks. Risks, benefits, complications were reviewed. Complications include but are not limited to bleeding, infection, seroma, hematoma, wound dehiscence, need for a second surgery if the margins are positive, injury to nerves arteries and or veins within the axilla, lymphadenopathy and adverse reaction to the medications. Questions were entertained and answered to her satisfaction and she wished to proceed. No guarantees were given or implied. We also discussed Covid testing prior to the procedure and quarantine requirements. Proceed with left breast Us guided needle localized partial mastectomy with sentinel lymph node biopsy. Procedure Description: At noon the patient was taken to the radiology department where 2 cc of radioactive isotope was injected around the left nipple. The skin was prepped with iodine and the isotope was injected into the dermis without complication. The patient was taken back to same-day surgery. Later that afternoon an informed consent was obtained from the patient, the left Breast was marked and she was taken back to the operating room and placed in the supine position on the operating room table. The patient was then placed under general anesthesia and an LMA was placed. Next with the assistance of the ferruler a 10 cm wire was placed into the left breast lesion making sure that the tip of the wire was passed the lesion itself. The skin was cleaned with chlorhexidine prior to placing the wire. 2 cc of methicillin blue were also injected around the areola and the skin was massaged for a minute. At this point a timeout was done. The patient's name, date of , allergies to medications, procedure to be done, site of surgery and antibiotic prophylaxis were all reviewed. Fire risk was assessed. The patient left chest wall and axilla were then prepped and draped in a standard surgical fashion. At this point Exparel and bupivacaine was injected into the dermis at the entrance of the wire. A 4 cm incision was made around the wire with a 10 blade. Dissection was done with cautery about 4 cm circumferentially around the needle. Once the breast tissue was completely dissected it was marked with a single suture at 12o'clock and a double suture lateral/ 3 o'clock. The wire and skin were anterior. The specimen was then sent to radiology where a mammogram picture was taken. It showed the breast lesion to be located centrally within the specimen. There was a spiculation that got close to the margin. More tissue was removed down to the fascia and marked with a single suture superior and double suture lateral. More tissue was removed from the lateral margine and medial margine and both were marked with a single suture superior and double suture lateral. The specimen was brought back to the operating room and placed in formalin for pathology. The cavity was irrigated with some normal saline and dried some small areas of bleeding were identified and these were stopped using cautery. Small vascular clips were then placed at the 12:00, 3:00, 6:00 and 9:00 positions. The cavity was inspected again and no bleeding was noted. The wound was packed with raytechs. Next 20 cc of Exparel mixed 50-50 with 0.25% bupivacaine was injected into the dermis and subcutaneous tissue in the left axilla. A 2 cm incision was made with a 15 blade. Cautery was then used to get through the subcutaneous tissue. The [place] probe was intermittently used to try to pinpoint the sentinel lymph nodes. The Clavipectoral fascia was cut with cautery. Next the fatty tissue was gently dissected using a hemostat. Using the [place] probe 1 sentinel lymph node was identified. The lymph node was resected and a count was done ex vivo. The count was 5500. A second larger lymph node was palpated and removed. This lymph node was not hot. The probe was then placed back into the axilla and a 10-second count was done which was 144. The area was palpated and I could not feel any abnormal or enlarged lymph nodes. The area was irrigated and small areas of bleeding were stopped using small vascular clipps. The ray techs were removed from the breast wound. No bleeding was noted. For both incisions the subcutaneos tissue was re-approximated with interrupted 3-0 vicryl sutures. The dermis was re-approximated with 4-0 vicryl running subcuticular stitch. The skin was cleaned and dried and mastasol and steristrips were applied. Mepilex border dressings were applied to both incisions. The patient was slowly woken up, the LMA was removed and she was taken back to the recovery room in stable condition. Sponge, instruments and needles were correct at the end of the case x2. 2 sentinel lymph nodes and breast tissue were all sent in formalin to pathology. There were no immediate complications.
--- NOTE | 2020-10-05 09:40 | PDOC.DSDIS_ITS ---
Documented by User: Brittnee Rodriguez MD 10/07/20 07:29 Discharge Plan Disposition Patient Disposition: HOME Condition: Good Discharge Details Reason For Visit: LEFT BREAST CANCER Admit Date/Time: 10/05/20 18:50 Admit Provider: Brittnee Rodriguez Attending Provider: Brittnee Rodriguez Primary Care Provider: Katherine Cifuentes [facility] Course Hospital Course: Patient was admitted overnight for observation, pain management, wound care. Today she is doing well. She is up walking around. Her pain is controlled with Tylenol. She has no signs of UTI/DVT/wound infection. She will be discharged to home and will follow up with Dr. Rodriguez on 10 14 in the clinic Home Meds and New Rx's Prescriptions: New famotidine [Pepcid] 40 mg tablet 40 mg PO DAILY Qty: 30 RF: 12 Continued acetaminophen [Tylenol Extra Strength] 500 MG tablet 1,000 mg PO HS PRN PRNRF: 0 alendronate 35 MG tablet 35 mg PO Q7D RF: 0 simvastatin 20 MG tablet 20 mg PO HS RF: 0 metformin 1,000 MG tablet 1,000 mg PO HS RF: 0 prednisone 50 MG tablet 50 mg PO HS RF: 0 Discharge Instructions Additional Instructions: Activity at Home after surgery: 1. Make sure you walk outside at least 4 times per day 2. You should be able to climb a flight of stairs 3. No driving while in pain or taking pain medications 4. No strenuous activity or heavy lifting for 2 weeks (laparoscopic surgery) or 4 weeks (open surgery) Diet, Nutrition, & wound healin. Avoid alcohol until after you are recovered from your surgery 2. Make sure to eat plenty of lean protein (meat, fish, eggs, cottage cheese, beans) 3. Eat a variety of fruits and vegetables. Eat plenty of high fiber foods to avoid constipation. 4. Drink plenty of liquids to stay hydrated and avoid constipation Pain Medications: 1. Tylenol 650mg every 6 hours as needed and Ibuprofen 600 mg every 6 hours as needed. You may alternate between the 2 medications every 3 hours 2. A prescription for Pepcid was placed. Take this daily for the next 30 days to avoid ulcers from Excedrin or ibuprofen. For Constipation: 1. Take Milk of Magnesia or MiraLax as needed for constipation Other: 1. You may shower daily. Do not scrub the incisions 2. Do not soak the incisions for 1 week 3. You may alternate ice and heat as needed for pain and swelling 4. Wear compression bra daily to provide support and help with swelling. It can be removed to shower or launder. 5. No lifting over 5 pounds with left arm 6. You can drive 7. Use an ice pack on your incisions to keep swelling down. Swelling is what causes pain. 20 minutes on and 20 minutes off. Wound Care: 1. Keep the incisions clean and dry Please call our office if you develop: 1. Fevers >101.5 2. Nausea or Vomiting 3. Worsening pain 4. Redness and thick discharge from the wounds If after hours please call the Hospital at and ask to speak to the on-call surgeon Follow-up with Dr. Rodriguez in the clinic on 10/14 at 9 AM Stand Alone Forms: Nursing Discharge Form Referrals: Brittnee Rodriguez MD [ [facility] STAFF PHYSICIAN] - 10/14/20 9:00 am Activity:: See above Equipment/Supplies:: No Equipment Needed Diet:: Carb Counting Discharge Orders Discharge Orders: Discharge Order (Routine); Ordered 10/06/20 Ordered By: Marii Driver Discharge Data Discharge Date/Time-TO BE ENTERED AT DEPARTURE: 10/06/20 14:12 Documented by User: Marii Driver DO 10/06/20 13:13 Discharge Plan Disposition Patient Disposition: HOME Condition: Good Discharge Details Reason For Visit: LEFT BREAST CANCER Admit Date/Time: 10/05/20 18:50 Admit Provider: Brittnee Rodriguez Attending Provider: Brittnee Rodriguez Primary Care Provider: Katherine Cifuentes Hospital Course Hospital Course: Patient was admitted overnight for observation, pain management, wound care. Today she is doing well. She is up walking around. Her pain is controlled with Tylenol. She has no signs of UTI/DVT/wound infection. She will be discharged to home and will follow up with Dr. Rodriguez on 10 14 in the clinic Home Meds and New Rx's Prescriptions: New famotidine [Pepcid] 40 mg tablet 40 mg PO DAILY Qty: 30 RF: 12 Continued acetaminophen [Tylenol Extra Strength] 500 MG tablet 1,000 mg PO HS PRN PRNRF: 0 alendronate 35 MG tablet 35 mg PO Q7D RF: 0 simvastatin 20 MG tablet 20 mg PO HS RF: 0 metformin 1,000 MG tablet 1,000 mg PO HS RF: 0 prednisone 50 MG tablet 50 mg PO HS RF: 0 Discharge Instructions Additional Instructions: Activity at Home after surgery: 1. Make sure you walk outside at least 4 times per day 2. You should be able to climb a flight of stairs 3. No driving while in pain or taking pain medications 4. No strenuous activity or heavy lifting for 2 weeks (laparoscopic surgery) or 4 weeks (open surgery) Diet, Nutrition, & wound healin. Avoid alcohol until after you are recovered from your surgery 2. Make sure to eat plenty of lean protein (meat, fish, eggs, cottage cheese, beans) 3. Eat a variety of fruits and vegetables. Eat plenty of high fiber foods to avoid constipation. 4. Drink plenty of liquids to stay hydrated and avoid constipation Pain Medications: 1. Tylenol 650mg every 6 hours as needed and Ibuprofen 600 mg every 6 hours as needed. You may alternate between the 2 medications every 3 hours 2. A prescription for Pepcid was placed. Take this daily for the next 30 days to avoid ulcers from Excedrin or ibuprofen. For Constipation: 1. Take Milk of Magnesia or MiraLax as needed for constipation Other: 1. You may shower daily. Do not scrub the incisions 2. Do not soak the incisions for 1 week 3. You may alternate ice and heat as needed for pain and swelling 4. Wear compression bra daily to provide support and help with swelling. It can be removed to shower or launder. 5. No lifting over 5 pounds with left arm 6. You can drive 7. Use an ice pack on your incisions to keep swelling down. Swelling is what causes pain. 20 minutes on and 20 minutes off. Wound Care: 1. Keep the incisions clean and dry Please call our office if you develop: 1. Fevers >101.5 2. Nausea or Vomiting 3. Worsening pain 4. Redness and thick discharge from the wounds If after hours please call the Hospital at and ask to speak to the on-call surgeon Follow-up with Dr. Rodriguez in the clinic on 10/14 at 9 AM Stand Alone Forms: Nursing Discharge Form Referrals: Brittnee Rodriguez MD [ [facility] STAFF PHYSICIAN] - 10/14/20 9:00 am Activity:: See above Equipment/Supplies:: No Equipment Needed Diet:: Carb Counting Discharge Orders Discharge Orders: Discharge Order (Routine); Ordered 10/06/20 Ordered By: Marii Driver Discharge Data Discharge Date/Time-TO BE ENTERED AT DEPARTURE: 10/06/20 14:12 DS: Diagnosis Discharge Diagnosis (1) Breast cancer, left breast: Status: Acute
[2020-10-05] MEDS: Lactated Ringers 1,000 ML 80 ML IV ×2 (11:38→19:57)
--- NOTE | 2020-10-05 14:26 | W.ANESPRE ---
General Info Date of Service Date Performed: 10/05/20 Height: 5 ft 4 in Weight: 78.2 kg Body Mass Index (BMI): 29.5 Surgical Procedure: Operation Date: 10/05/20 14:10 Proposed Procedures Side Surgeon p LT BREAST LUMPECTOMY Left Brittnee Rodriguez MD s AXILLARY SENTINEL NODE DISSECTION Left Brittnee Rodriguez MD Meds Allergies and Home Medications Allergies Allergy/AdvReac Type Severity Reaction Status Date / Time venom-honey bee Allergy Severe Anaphylaxsi Verified 10/05/20 11:19 [bee venom (honey bee)] s Home Medication Medication Instructions Recorded acetaminophen [Tylenol Extra 1,000 mg PO HS PRN PRN 01/20/16 Strength] alendronate 35 mg PO Q7D 01/20/16 metformin 1,000 mg PO HS 01/20/16 simvastatin 20 mg PO HS 01/20/16 prednisone 50 mg PO HS 10/03/20 Current Visit Medications: Current Medications Generic Name Dose Route Start Last Admin Trade Name Freq PRN Reason Stop Dose Admin Ringer's Solution 1,000 mls @ 80 mls/hr 10/05/20 06:00 10/05/20 11:38 IV 11/03/20 23:59 80 mls/hr INFUSION ALANNA Administration Cefazolin Sodium/Dextrose 2 gm in 50 mls @ 100 mls/hr 10/05/20 06:00 Ancef Duplex IVPB 11/03/20 23:59 PREOP ALANNA Ondansetron HCl 4 mg/ Sodium 52 mls @ 200 mls/hr 10/05/20 09:41 Chloride IVPB Q6H PRN PRN IV Miscellaneous Supplies 1 each 10/05/20 06:00 Iv Access IV 11/03/20 23:59 DIRECTED ALANNA Sodium Chloride 0 ml 10/05/20 06:00 Normal Saline Flush 10 Ml Syr IV 11/03/20 23:59 PRN PRN Sodium Chloride 0 ml 10/05/20 06:00 Normal Saline 10 Ml Vial IJ 11/03/20 23:59 DIRECTED PRN Sterile Water 0 ml 10/05/20 06:00 Water,Injection,Sterile 10 Ml Vial IJ 11/03/20 23:59 DIRECTED PRN Tramadol HCl 50 mg 10/05/20 09:41 Tramadol 50 Mg Tab PO Q6H PRN PRN Pain PFSH Active Problems Active Problems: Problem Status Onset Code Breast cancer, left breast C50.912 Medical History Medical History Cataracts, bilateral Decreased renal function Degenerative joint disease Diabetes type 2, controlled Fracture of distal end of radius and ulna Hx of cancer of endometrium Hyperlipidemia Macular degeneration Osteoporosis Presbyopia of both eyes Situational anxiety Surgical History Surgical History H/O left breast biopsy invasive adenocarcinoma, ER+, [place]-, HER-2 -. S/P SAMSON-BSO (total abdominal hysterectomy and bilateral salpingo-oophorectomy) Tobacco Smoking/Tobacco Use Status: Former Tobacco Use Alcohol Alcohol Intake: never Substance Use Substance use: Never Substance use type: does not use Vital Signs and Lab Results Vital Signs Most Recent Vital Signs in EMR: Most Recent Vital Signs Temp Pulse Resp BP Pulse Ox 35.9 C L 82 16 141/85 H 98 10/05/20 11:21 10/05/20 11:21 10/05/20 11:21 10/05/20 11:21 10/05/20 11:21 Point of Care Results Point of Care Results: Finger Stick Blood Glucose 107 10/05/20 11:38 Lab Results Blood Type / Crossmatch: No Data to Display Complete Blood Count: No Data to Display Complete Metabolic Panel: Sodium Level 142 mmol/L (136-145) 08/22/20 13:35 08/22/20 Potassium Level 4.3 mmol/L (3.5-5.1) 08/22/20 13:35 08/22/20 Chloride Level 105 mmol/L (98-107) 08/22/20 13:35 08/22/20 Carbon Dioxide Level 29.8 mmol/L (21.0-32.0) 08/22/20 13:35 08/22/20 Blood Urea Nitrogen 15 mg/dL (7-18) 08/22/20 13:35 08/22/20 Creatinine 1.1 mg/dL (0.55-1.02) H 08/22/20 13:35 08/22/20 Calcium Level 9.2 mg/dL (8.5-10.1) 08/22/20 13:35 08/22/20 Albumin 3.6 g/dL (3.4-5.0) 01/26/20 09:00 01/26/20 Glucose Level 98 mg/dL (74-106) 08/22/20 13:35 08/22/20 Hemoglobin A1c 5.8 % (4.5-6.2) 09/13/15 08:00 09/13/15 Liver Function Panel: Alanine Aminotransferase (ALT/SGPT) 27 U/L (14-59) 01/26/20 09:00 01/26/20 Aspartate Amino Transf (AST/SGOT) 16 U/L (15-37) 01/26/20 09:00 01/26/20 Coagulation Panel: No Data to Display Cardiac Panel: Creatine Kinase 96 U/L (26-192) 01/26/20 09:00 01/26/20 Arterial Blood Gas: No Data to Display Venous Blood Gas: No Data to Display Pancreas Panel: No Data to Display Thyroid Panel: No Data to Display Infectious Disease: Coronavirus (COVID-19)(PCR) Negative (Negative) 10/03/20 09:14 10/03/20 Coronavirus 2019 Source Nasal/nares 10/03/20 09:14 10/03/20 Blood Cultures: No Data to Display Toxicology Panel: No Data to Display Panel: No Data to Display Anesthesia Assessment and Plan Anesthesia History Personal History: No History of Anesthesia Complications Family History: No Family History of Anesthesia Complications Exercise Tolerance Exercise Tolerance: Metabolic Equivalents>4 Pertinent Negatives Pertinent Negatives: No Symptoms of GERD, No Major Cardiovascular Symptoms or Complaints, No Major Pulmonary Symptoms or Complaints and No History of CVA/TIA Cardiac & Pulmonary Exam Cardiac Exam: Normal S1/S2 Heart Sounds Pulmonary Exam: Clear Bilateral Breath Sounds Airway Exam Known Difficult Airway: No Mallampati Class: 3 Mouth Opening: Normal (> 3cm) Thyromental Distance: Greater than 3 cm Neck Range of Motion: Full ROM Neck Circumference: Normal Teeth Condition: Edentulous ASA Classification ASA Score: ASA 2 ASA Emergency: No NPO Status NPO Status: NPO Clears >2 hours, Solids >8 hours Anesthesia Plan Anesthesia Technique: General Anesthesia Airway Planned: LMA Pain Management: Surgeon and patient request nerve block Monitors Used: Standard Monitors
[2020-10-05] MEDS: ceFAZolin 2 GM/50 ML BAG IVPB (16:17)
--- NOTE | 2020-10-05 16:19 | W.ANESNERVE ---
Nerve Block Single Injection Procedure Date and Time Date Performed: 10/05/20 Procedure Start: 16:03 Location Where Procedure Performed Procedure Location: Operating Room Procedure Stop: 14:09 Reason Performed: Postoperative Analgesia Requesting Provider: Brittnee Rodriguez Timeout Performed Timeout Performed: Yes Monitoring Used ECG, Blood Pressure, SpO2, ETCO2 and See EMR for corresponding vital signs Sterility Sterility: Hand Hygiene, Surgical Cap, Surgical Mask, Sterile Gloves and Chlorhexidine Sedation Given During Procedure Sedation Given (Indicate Dose Given): Other Patient Mental Status Patient Mental Status: Performed under general anesthesia Nerve Block 1st Nerve Block: Laterality: Left Block Type: Other (PECS 1 and 2) Needle / Catheter Used: 100mm SonoPlex II Local Anesthetic Bolus (Indicate Dose Given): Injected in 3-5ml increments after negative blood aspiration, Half of Total block solution given into each side (half of block solution given at each level), Bupivacaine 0.5% (10 ml) and Exparel (10 ml) Additives (Indicate Dose Given): None Ultrasound: Sterile probe cover and gel used Ultrasound Image Saved?: Yes Nerve Stimulator: Not Used Paresthesia: None Procedure Tolerated: No Complications and Patient tolerated well Procedure Outcome: Successful Performed By: Bo Ty
--- NOTE | 2020-10-05 17:05 | BREAST_PTH ---
PATIENT: Regina Payton LOC: U#:[id number] AGE/SX: 80/F ROOM: 206 RE10/05/[address]: Brittnee Rodriguez MD : 1940 BED: A DIS: 10/06/2020 SPEC #: [id number] RECD: 10/06/20 11:24 STATUS: EDILBERTO REQ #: [id number] RICARDO: 10/05/20 17:[address]: Brittnee Rodriguez DEPT: Surgical Specimen RECD BY: Eneida Snow ENTERED: 10/06/20 11:32 SP TYPE: Breast OTHR DR: Katherine Cifuentes Tissues: 1 - BREAST INCISION/EXCISION 2 - BREAST INCISION/EXCISION 3 - BREAST INCISION/EXCISION 4 - BREAST INCISION/EXCISION 5 - BREAST INCISION/EXCISION 6 - BREAST INCISION/EXCISION Procedures: GROSS AND MICRO LEVEL 4 IMMUNOPEROXIDASE STAIN GROSS AND MICRO LEVEL 5 Comments: [id number] (ALL SPECIMENS RADIOACTIVE)
[2020-10-05] MEDS: Lidocaine 1% Multi-Dose 50 ML VIAL (18:00)
--- NOTE | 2020-10-05 18:57 | W.PM.HP.N ---
Date of service: 10/05/20 Time of Service: 18:57 Assessment and Plan Assessment and plan (1) Breast cancer, left breast: Status: Acute Assessment and plan: 80 year old female s/p left Breast lumpectomy and SLN bx. Admitt for overnight observation Qualifiers: Breast location: lower outer quadrant of breast Estrogen receptor status: positive Patient sex: female Qualified Code(s): C50.512 - Malignant neoplasm of lower-outer quadrant of left female breast; Z17.0 - Estrogen receptor positive status [ER+] History of Present Illness Narrative: Mrs. Payton is a pleasant 80 year old female who underwent a left Breast lumpectomy and SLN bx. Her surgery went very well but we finished late in the day. She is still very groggy and unstable on her feet. She lives alone and I do not believe that she would be safe going home. She is being admitted for Observation Review of Systems Constitutional Constitutional: Denies fatigue, Denies fever(s) and Denies weakness Cardiovascular Cardiovascular: Denies chest pain, Denies chest pain at rest, Denies irregular heart rhythm, Denies dyspnea and Denies dyspnea on exertion Respiratory Respiratory: Reports cough, Denies dyspnea and Denies dyspnea on exertion Gastrointestinal Gastrointestinal: Reports as per HPI Genitourinary Genitourinary: Denies dysuria, Reports urinary incontinence and Denies urinary urgency Neurologic Neurologic: Denies weakness Endocrine Endocrine: Reports system reviewed and no additional complaints, except as documented and Denies fatigue Hematologic/Lymphatic Hematologic/Lymphatic: Denies easy bruising and Denies lymphadenopathy PFSH Medical History Cataracts, bilateral Decreased renal function Degenerative joint disease Diabetes type 2, controlled Fracture of distal end of radius and ulna Hx of cancer of endometrium Hyperlipidemia Macular degeneration Osteoporosis Presbyopia of both eyes Situational anxiety Surgical History H/O left breast biopsy invasive adenocarcinoma, ER+, CT-, HER-2 -. S/P SAMSON-BSO (total abdominal hysterectomy and bilateral salpingo-oophorectomy) Social History Smoking/Tobacco Use Status: Former Tobacco Use Smoking risk assessment performed?: Yes Alcohol Intake: never Drug use: Never Substance use type: does not use Do you feel safe at home: Yes Additional Social history: lives alone Meds Allergies and Home Medications Allergies Allergy/AdvReac Type Severity Reaction Status Date / Time venom-honey bee Allergy Severe Anaphylaxsi Verified 10/05/20 11:19 [bee venom (honey bee)] s Home Medications Medication Instructions Recorded Confirmed Type acetaminophen [Tylenol Extra 1,000 mg PO HS PRN PRN 01/20/16 10/05/20 History Strength] alendronate 35 mg PO Q7D 01/20/16 10/05/20 History metformin 1,000 mg PO HS 01/20/16 10/05/20 History simvastatin 20 mg PO HS 01/20/16 10/05/20 History prednisone 50 mg PO HS 10/03/20 10/05/20 History Exam Const General: healthy appearing and comfortable Resp Effort & Inspection: normal respiratory effort Auscultation: clear to auscultation bilaterally Cardio Rate: regular rate Rhythm: regular rhythm Heart Sounds: no click, no gallops and no murmurs Results Last Vital Signs Temp 97.5 F L 10/05/20 18:50 Pulse 65 10/05/20 18:50 Resp 16 10/05/20 18:50 BP 132/64 10/05/20 18:50 Pulse Ox 97 10/05/20 18:50 COVID-19 Screening Have you, or household traveled for leisure in last 14 days?: No Had IN PERSON contact w/suspected or confirmed C-19 person: No
--- NOTE | 2020-10-05 19:25 | W.ANESPOSTOP ---
Postoperative Evaluation Date, Time and Location Date Performed: 10/05/20 Time Performed: 19:25 Patient Location: Med/Surg Vital Signs Most Recent Imported Vital Signs: Most Recent Vital Signs Temp Pulse Resp BP Pulse Ox 36.4 C L 63 19 157/76 H 98 10/05/20 18:55 10/05/20 18:55 10/05/20 18:55 10/05/20 18:55 10/05/20 18:55 Pain Score Most Recent Pain Score: Most Recent Pain Score Pain Level 0 10/05/20 18:55 Assessment Mental Status: Other (Agitated, wants to go home tonight to be with her pets) Airway and Respiratory Function: Patent airway with normal (patient baseline) respiratory exam Cardiovascular Function: Hemodynamically Stable Hydration Status: Adequately Hydrated Nausea & Vomiting: No Nausea or Vomiting Pain: Pt. Denies Any Pain Peripheral Nerve Block: Regional nerve block not resolved at time of post operative discharge Teaching Patient Teaching: Other (encouraged pt to spend the night for safety reasons. As of this note, pt was agitated and is considering leaving AMA. 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
--- NOTE | 2020-10-05 19:29 | ANES.POST_ITS ---
Postoperative Evaluation Date, Time and Location Date Performed: 10/05/20 Time Performed: 19:29 Patient Location: Med/Surg Vital Signs Most Recent Imported Vital Signs: Most Recent Vital Signs Temp Pulse Resp BP Pulse Ox 36.4 C L 63 19 157/76 H 98 10/05/20 18:55 10/05/20 18:55 10/05/20 18:55 10/05/20 18:55 10/05/20 18:55 Most Recent Vital Signs Temp Pulse Resp BP Pulse Ox 36.4 C L 63 19 157/76 H 98 10/05/20 18:55 10/05/20 18:55 10/05/20 18:55 10/05/20 18:55 10/05/20 18:55 Pain Score Most Recent Pain Score: Most Recent Pain Score Pain Level 0 10/05/20 18:55 Assessment Mental Status: Awake (Alert & Oriented to Patient Baseline) (Agitated, pt wants to go home to be with her pets) Airway and Respiratory Function: Patent airway with normal (patient baseline) respiratory exam Cardiovascular Function: Hemodynamically Stable Hydration Status: Adequately Hydrated Nausea & Vomiting: No Nausea or Vomiting Pain: Pt. 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
[2020-10-05] MEDS: Ibuprofen 600 MG TAB PO (19:58)
[2020-10-05] MEDS: Docusate Sodium 100 MG CAP PO (19:58)
[2020-10-05] MEDS: predniSONE 10 MG TAB 50 MG PO (21:30)
[2020-10-05] MEDS: Simvastatin 20 MG TAB PO (21:30)
[2020-10-05] MEDS: metFORMIN 500 MG TAB 1000 MG PO (21:30)
[2020-10-06] MEDS: Ibuprofen 600 MG TAB PO ×3 (02:12→13:36)
[2020-10-06] MEDS: Lactated Ringers 1,000 ML 80 ML IV (06:10)
--- NOTE | 2020-10-06 06:43 | W.PM.PROGNOT ---
Documented by User: [email or web address] Villavicencio 10/06/20 07:04 Date of Service Date of service: 10/06/20 Time of Service: 06:43 Assessment and Plan Assessment and plan (1) Breast cancer, left breast: Status: Acute Assessment and plan: POD #1 s/p left Breast lumpectomy and SLN bx. She was admitted over night for pain control and post-operative observation. Pain is well controlled She is eager to return home D/C Home later today Qualifiers: Breast location: lower outer quadrant of breast Estrogen receptor status: positive Patient sex: female Qualified Code(s): C50.512 - Malignant neoplasm of lower-outer quadrant of left female breast; Z17.0 - Estrogen receptor positive status [ER+] Subjective Subjective Interval history since last seen: Regina reports feeling well and eager to go home today. She denies having any pain. Exam Const General: cooperative, healthy appearing and comfortable Orientation: alert and oriented x3 Chest Other: Wearing supportive Bra. Incisions are dressed with Mepliex dressing. Resp Effort & Inspection: normal respiratory effort, no audible wheezes and no cough Objective Last Vital Signs Temp 36.9 C 10/05/20 23:16 Pulse 88 10/05/20 23:16 Resp 18 10/05/20 23:16 BP 144/79 H 10/05/20 23:16 Pulse Ox 93 10/05/20 23:16 Documented by User: Marii Driver DO 10/06/20 13:02 Subjective Subjective Interval history since last seen: Pt is doing well. no headaches. No CP or SOB. no productive cough. no dysuria. no leg pain or swelling.
[2020-10-06 07:41] VITALS: BP 114/72; PULSE 80; RESP 18; TEMP 36.7; O2SAT 95
[2020-10-06] MEDS: Docusate Sodium 100 MG CAP PO ×2 (08:33→13:35)
--- NOTE | 2020-10-06 09:21 | INITIAL_ITS ---
- If Service Date Differs Date of service: 10/06/20 Time of Service: 09:22 Care Management Initial Assess REASON FOR HOSPITALIZATION:: Left Breast Cancer PAST MEDICAL HISTORY/PAST SURGICAL HISTORY:: Medical History. Cataracts, bilateral. Decreased renal function. Degenerative joint disease. Diabetes type 2, controlled. Fracture of distal end of radius and ulna. Hx of cancer of endometrium. Hyperlipidemia. Macular degeneration. Osteoporosis. Presbyopia of both eyes. Situational anxiety. Surgical History. H/O left breast biopsy. invasive adenocarcinoma, ER+, NV-, HER-2 -. S/P SAMSON-BSO (total abdominal hysterectomy and bilateral salpingo-oophorectomy) PREVIOUS FUNCTIONAL STATUS/SOCIAL/FAMILY SUPPORTS:: Regina lives alone in [place]. Her daughter, Yarelis, lives in [place]. 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 She plans to move to [place] with her daughter later this year to be close to family. She is independent at baseline. CURRENT FUNCTIONAL STATUS:: Regina was sitting up in her chair when CM met with her. She was pleasant and engaged in conversation. She reported that per MD, she would likely be ready for discharge today. She stated that her brother will drive her home when ready, and she does not feel that she has needs that are not currently being met. CM will continue to follow. ADVANCE DIRECTIVES:: None on file. CM will offer forms. Has patient been provided with info about the portal/API?: Yes Did the patient sign up for the portal?: No CODE STATUS:: Full Code INSURANCE COVERAGE / FINANCIAL ISSUES:: MCR/ Financial Assist 100% CURRENT HOME/COMMUNITY SERVICES/EQUIPMENT:: No current services or equipment. PRIMARY CARE PHYSICIAN:: Katherine Cifuentes POTENTIAL DISCHARGE NEEDS:: Follow up appointments PATIENT/FAMILY EDUCATION NEEDS:: Review discharge instructions, discussion of self care needs. ANTICIPATED BARRIERS TO DISCHARGE:: None identified. TRANSPORTATION:: Via private vehicle with her brother PLAN:: Anticipate Regina will return home when medically cleared. She will be driven home via private vehicle by her brother. She will follow up with her PCP and discharge plan of care. CM will continue to follow.
[2020-10-06] MEDS: Milk of Magnesia 30 ML CUP PO (13:35)
--- NOTE | 2020-10-06 13:59 | CHAPLAIN ---
When I visited with Regina this morning, she was sitting on the edge of the bed and said she was waiting to be discharged. She asked that I call the nurse to help her to the bathroom.
--- NOTE | 2020-10-06 15:17 | PDOC.CMDIS ---
- If Service Date Differs Date of service: 10/06/20 Time of Service: 15:17 LACE Index Scoring Tool - Questions: Length of Stay (in days): 1 Acuity (Admit via E.D.?): No Comorbidities: Any Tumor E.D. Visits: 0 - Answers: Total Score: 3 Risk of Readmission: Low Risk Care Management Discharge Reason for Hospitalization: Left Breast Cancer Discharge Plan: Regina will return home today with no new services. Her brother will drive her home via private vehicle. She will follow up with her PCP and discharge plan of care. She is happy to be going home. Patient/Family Education Needs: Review discharge instructions regarding activity levels and medications, discussion of self care needs and goals of care.
== END 2020-10-06 14:12 | disposition home or self-care (01) ==
LOC: SUR 18:56 → MS 10-06 09:02
PROVIDERS: Admitting Provider Surgery; PCP Nurse Practitioner Family; Visit Provider Surgery
PROC: (CPT 19302; principal; 2020-10-05 14:00)
PROC: (CPT 19301; 2020-10-05 14:00)
DX: C50.512 Malignant neoplasm of lower-outer quadrant of left female breast (principal); Z17.0 Estrogen receptor positive status [ER+]; E78.5 Hyperlipidemia, unspecified; M81.0 Age-related osteoporosis without current pathological fracture; F41.8 Other specified anxiety disorders; H35.30 Unspecified macular degeneration; Z85.42 Personal history of malignant neoplasm of other parts of uterus; E11.9 Type 2 diabetes mellitus without complications; Z87.891 Personal history of nicotine dependence
CPT/HCPCS: 19301; 38500; 19285; 76942; 77061; 77065; 88305; 78195; 88307; 88361; G0279; G0378; J0131; J0690; J1100; J1885; J2001; J2405; J2704; J7512

== ENCOUNTER → 2020-10-14 08:58 | Outpatient (BNVA) | payer MEDICARE, SELFPAY | PROVIDERS: PCP Nurse Practitioner Family; Referring Provider Nurse Practitioner Family; Visit Provider Surgery | DX: Z48.3 Aftercare following surgery for neoplasm (principal); C50.912 Malignant neoplasm of unspecified site of left female breast ==

== ENCOUNTER → 2020-10-27 12:54 | Outpatient (BNVA) | payer MEDICARE, SELFPAY | PROVIDERS: PCP Nurse Practitioner Family; Referring Provider Nurse Practitioner Family; Visit Provider Physical Therapy Assistant | DX: Z48.817 Encounter for surgical aftercare following surgery on the skin and subcutaneous tissue (principal) ==

== ENCOUNTER → 2020-11-01 11:14 | Outpatient (BNVA) | payer MEDICARE, SELFPAY | PROVIDERS: PCP Nurse Practitioner Family; Referring Provider Nurse Practitioner Family; Visit Provider Surgery | DX: Z48.817 Encounter for surgical aftercare following surgery on the skin and subcutaneous tissue (principal); C50.512 Malignant neoplasm of lower-outer quadrant of left female breast; Z17.0 Estrogen receptor positive status [ER+] ==

== ENCOUNTER 2020-11-21 18:04 | Outpatient (REF) | payer MEDICARE, SELFPAY ==
[2020-11-21 19:44] LABS: ALT 26 U/L (14-59); AST 15 U/L (15-37); HDL Cholesterol 55 mg/dL (40-60); LDL CHOLESTEROL 87 mg/dL (<100)
[2020-11-21 20:00] LABS: Creatine Kinase 119 U/L (26-192)
== END 2020-11-21 18:05 | disposition home or self-care (01) ==
LOC: NCHCN 18:04
PROVIDERS: PCP Nurse Practitioner Family; Visit Provider Nurse Practitioner Family
DX: E78.5 Hyperlipidemia, unspecified (principal)
CPT/HCPCS: 82550; 83721; 83718; 84450; 84460